=== PATIENT | female | born 1955 | race Caucasian/White ===

== ENCOUNTER 2016-11-14 16:17 | Inpatient (IN) | payer OTHER ==
[~2016-11-14] VITALS: Ht 157.5 cm; Wt 78.6 kg
--- NOTE | 2016-11-14 16:35 | NUR ---
PATIENT SENT TO LOBBY TO WAIT FOR AVAILABLE BED. 0 S/S DISTRESS AND STABLE VITALS
--- NOTE | 2016-11-14 17:33 | NUR ---
CHAPPARONED DR CARCAMO IN RECTAL EXAM; PT HAS EXTERNAL HEMMORHOIDS; NO BLEEDING NOTED.
--- NOTE | 2016-11-14 17:41 | NUR ---
PT PRESENTS TO THE ED WITH THE COMPLAINT OF RECTAL BLEEDING X 2 MONTHS.
--- NOTE | 2016-11-14 17:46 | NUR ---
PT BEING TAKEN TO CT SCAN VIA GURNEY AT THIS TIME
[2016-11-14 17:56] LABS: BASOPHIL % 0.5 % (0-2); PLATELET COUNT 237 x10^3mcL (130-400); RED CELL DISTRIBUTION WIDTH 14.7 % (11.5-14.5)
[2016-11-14 18:05] LABS: CALCIUM 8.8 mg/dL (8.5-10.1); CHLORIDE SERUM 106 mmol/L (98-107); CREATININE SERUM 0.7 mg/dL (0.6-1.0); GFR1 > 60 mL/min; GLUCOSE SERUM 90 mg/dL (74-106); POTASSIUM SERUM 3.8 mmol/L (3.5-5.1); SODIUM SERUM 139 mmol/L (136-145)
[2016-11-14 18:10] LABS: ALBUMIN 3.6 g/dL (3.4-5.0); ALKALINE PHOSPHATASE 90 U/L (46-116); ALT/SGPT 43 U/L (14-59); AST/SGOT 28 U/L (15-37); BILIRUBIN TOTAL 0.26 mg/dL (0.20-1.00); TOTAL PROTEIN, SERUM 7.7 g/dL (6.4-8.2)
--- NOTE | 2016-11-14 19:14 | NUR ---
RECEIVED REPORT FROM FLACO MOJICA.
--- NOTE | 2016-11-14 19:42 | NUR ---
BILAT NARES SWABBED FOR MRSA SCREENING.
[2016-11-14] MEDS ORDERED: TRAMADOL HCL50 MG PO (19:44)
[2016-11-14] MEDS ORDERED: PANTOPRAZOLE SO40 M1 PO (19:44)
[2016-11-14] MEDS ORDERED: DICLOFENAC SOD50 M1 PO (19:45)
[2016-11-14] MEDS ORDERED: GOOD SENSE OMEP20 MG PO (19:46)
[2016-11-14] MEDS ORDERED: CARAFATE1 GM PO (19:46)
[2016-11-14] MEDS ORDERED: 8 HOUR PAIN RE650 M1 PO (19:47)
--- NOTE | 2016-11-14 19:47 | NUR ---
MED REC COMPLETED.
--- NOTE | 2016-11-14 19:58 | NUR ---
REPORT TO [facility].
[2016-11-14 21:08] VITALS: BP 157/61
--- NOTE | 2016-11-14 21:15 | NUR ---
REC'D PT, AOX4, SPEECH CLEAR. DENIES ABD PAIN. NOT ON TELE. DENIES CHEST PAIN. ON RA, NO SOB NOTED. ORIENTED PT TO ROOM AND SURROUNDINGS. CALL LIGHT WITHIN REACH, PROVIDED REPORT TO ARLETTE SAM FOR CONTINUITY OF CARE.
--- NOTE | 2016-11-14 21:30 | NUR ---
RECEIVED PT FROM MAY ADMITTING RN. PT IS ALERT AND ORIENTED X4. NO COMPLAINTS OF PAIN NOTED. RESPIRATIONS EVEN AND UNLABORED. NO DISTRESS NOTED. PT C/O RECTAL BLEEDING. PT IS [place] SPEAKING VERY LITTLE [place] AND ABLE TO MAKE NEEDS KNOWN. IV INFUSING WELL WITH NO INFILTRATION NOTED. INSTRUCTED PT TO USE CALL LIGHT IF NEEDS ASSISTANCE WITH ANYTHING. CALL LIGHT IN REACH. WILL MONITOR. PAGED DR CASTRO FOR FLOOR ORDERS. AWAITING PHONE CALL BACK AT THIS TIME.
--- NOTE | 2016-11-15 00:40 | NUR ---
PT SLEEPING AT THIS TIME WITH NO DISTRESS NOTED. RESPIRATIONS EVEN AND UNLABORED. CALL LIGHT IN REACH. WILL MONITOR.
--- NOTE | 2016-11-15 03:30 | NUR ---
NO CHANGES NOTED AT THIS TIME. NO COMPLAINTS OF PAIN AND NO DISTRESS NOTED. RESPIRATIONS EVEN AND UNLABORED. CALL LIGHT IN REACH. WILL MONITOR.
--- NOTE | 2016-11-15 06:07 | NUR ---
PT CONTINUES TO REST AT THIS TIME, NO DISTRESS NOTED. IV INFUSING WELL AT TKO WITH NO INFILTRATION NOTED. NO C/O PAIN. PT STABLE AT THIS TIME, WILL ENDORSE TO THE A.M SHIFT NURSE.
[2016-11-15 06:11] VITALS: BP 149/68
[2016-11-15 06:23] LABS: BASOPHIL % 0.6 % (0-2); PLATELET COUNT 230 x10^3mcL (130-400)
[2016-11-15 06:26] LABS: RED CELL DISTRIBUTION WIDTH 15.2 % (11.5-14.5)
[2016-11-15 06:43] LABS: CALCIUM 8.3 mg/dL (8.5-10.1); CARBON DIOXIDE 28.2 mmol/L (21-32); CHLORIDE SERUM 108 mmol/L (98-107); CREATININE SERUM 0.7 mg/dL (0.6-1.0); GFR1 > 60 mL/min; GLUCOSE SERUM 81 mg/dL (74-106); POTASSIUM SERUM 3.5 mmol/L (3.5-5.1); SODIUM SERUM 141 mmol/L (136-145)
--- NOTE | 2016-11-15 07:15 | NUR ---
AAO X4.[place] ONLY.DENIES ANY PAIN/DISCOMFORT.REGINALDONGS CLEAR.PT NON-TELE.IVF GOING TO TKO.CALL LIGHT WITHIN REACH.INSTRUCTED TO CALL FOR ANY PAIN/DISCOMFORT.WILL CONTINUE TO MONITOR PT.
[2016-11-15 10:29] VITALS: BP 118/70
--- NOTE | 2016-11-15 11:30 | NUR ---
CAME TO SEE PT.INFORMED HIM OF THE PLAN OF CARE.CONSENT SIGNED FOR EGD AND COLONOSCOPY.PRE-OP CHECKLIST STARTED.BOWEL PREP STARTED.
[2016-11-15 12:15] VITALS: BP 140/61
[2016-11-15 16:35] VITALS: BP 156/59
[2016-11-15 17:12] LABS: UA SPECIFIC GRAVITY 1.025 (1.005-1.035); microscopic required? YES; urine erythrocyte 1+ (NEGATIVE)
--- NOTE | 2016-11-15 18:19 | NUR ---
PT CLAIMS HAD 6+ BM'S TODAY.CLAIMS COLOR IS YELLOW AND SEMI LIQUID STOOL.NO SIGNIFICANT CHANGE NOTED.WILL ENDORSE TO NEXT SHIFT.
--- NOTE | 2016-11-15 19:27 | NUR ---
AWAKE AND VERBALLY RESPONSIVE. ABLE TO MAKE NEEDS KNOWN. SITTING AT THE EDGE OF THE BED DURING SHIFT REPORT. SKIN WARM AND DRY TO TOUCH. FOR EGD/COLONOSCPOPY IN AM, BOWEL PREP AT BEDSIDE, INSTRUCTED TO TAKE AT LEAST [id number], VERBALIZED UNDERSTANDING.
[2016-11-15 20:44] VITALS: BP 134/69
--- NOTE | 2016-11-16 00:10 | NUR ---
BOWEL PREP CONSUMED AND WELL TOLERATED. AMBULATED TO BATHROOM FOR BOWEL ELIMIANTION, WITH LIQUID STOOLS . KEPT CLEAN AND DRY. WILL CONTINUE TO MONITOR.
[2016-11-16 05:29] VITALS: BP 126/67
--- NOTE | 2016-11-16 05:40 | NUR ---
AMBULATED TO BATHROOM FOR PERSONAL NEEDS. GOOD PERICARE RENDERED. KEPT CLEAN AND DRY. REMAINS NPO AFTER MIDNIGHT EXCEPT MEDICATIONS FOR EGD/COLONOSCOPY TODAY. IV ACCESS INTACT AND PATENT. ALL NEEDS ATTENDED.
--- NOTE | 2016-11-16 06:30 | NUR ---
VITAL SIGNS STABLE. REMAINS NPO FOR EGD/COLONOSCOPY TODAY AT AROUND 0900AM . REPORT GIVEN TO ABDOUL (OR STAFF)/
--- NOTE | 2016-11-16 07:44 | NUR ---
RECEIVED SLEEPING BUT AROUSABLE. NO RESP. DISTRESS NOTED. NO C/O PAIN OR DISCOMFORT. IVF INFUSING TO KVO AND SITE CLEAR. PT IS FOR COLONOSCOPY THIS AM PER REPORT. CONSENT SIGNED. CALL LIGHT WITHIN REACH. WILL CONTINUE W/PLAN OF CARE.
--- NOTE | 2016-11-16 09:51 | NUR ---
PT LEFT TO GI LAB IN NO DISTRESS, ALERT AND ORIENTED.
--- NOTE | 2016-11-16 11:03 | NUR ---
PT RETURNED FROM GI LAB IN NO DISTREES. AWAKE ALERT AND ORIENTED. VS WNL. NO C/O PAIN OR DISCOMFORT AT THIS TIME.
[2016-11-16 11:19] VITALS: BP 147/61
[2016-11-16 15:35] VITALS: BP 147/61
--- NOTE | 2016-11-16 16:11 | NUR ---
PT WILL BE DC'D HOME THIS PM. DC INSTRUCTIONS AND RX GIVEN. HL REMOVED AND SITE CLEAR. PT IS GETTING READY.
--- NOTE | 2016-11-16 16:41 | NUR ---
PT DC'D HOME IN NO DISTRESS, AWAKE AND ALERT . NO CHANGES IN VS. NO C/O PAIN OR DISCOMFORT AT THIS TIME. PERSONAL BELONGINGS TAKEN HOME.
== END 2016-11-16 16:37 | disposition home or self-care (01) | DRG 245 ==
LOC: ED 16:17 → MU 19:11
PROVIDERS: Emergency Medicine; Internal Medicine Gastroenterology; Internal Medicine Pulmonary Disease; ADMIT Internal Medicine Pulmonary Disease
PROC: 0DBK8ZX Excision of Ascending Colon, Via Natural or Artificial Opening Endoscopic, Diagnostic (ICD-10-PCS; 2016-11-16)
PROC: 0DB68ZX Excision of Stomach, Via Natural or Artificial Opening Endoscopic, Diagnostic (ICD-10-PCS; principal; 2016-11-16 08:30)
PROC: 0DBH8ZX Excision of Cecum, Via Natural or Artificial Opening Endoscopic, Diagnostic (ICD-10-PCS; 2016-11-16 08:30)
PROC: 0DBN8ZX Excision of Sigmoid Colon, Via Natural or Artificial Opening Endoscopic, Diagnostic (ICD-10-PCS; 2016-11-16 08:30)
DX: K51.90 Ulcerative colitis, unspecified, without complications (principal); K21.0 Gastro-esophageal reflux disease with esophagitis; K44.9 Diaphragmatic hernia without obstruction or gangrene; Z90.49 Acquired absence of other specified parts of digestive tract; Z90.710 Acquired absence of both cervix and uterus
CPT/HCPCS: 43235; 45378; J0295; J1200; J1610; J1720; J1956; J2250; J2310; J3010; J3490; J7030; Q0092

== ENCOUNTER 2018-01-21 11:27 | Emergency (ER) | payer OTHER ==
[~2018-01-21] VITALS: Ht 154.9 cm; Wt 78.9 kg
[~2018-01-21 11:27] MED LIST: 8 HOUR PAIN RE650 M1 PO; CARAFATE1 GM PO; DICLOFENAC SOD50 M1 PO; GOOD SENSE OMEP20 MG PO; PANTOPRAZOLE SO40 M1 PO; TRAMADOL HCL50 MG PO
[2018-01-21 11:35] VITALS: Ht 154.9 cm; Wt 78.9 kg
[2018-01-21 14:02] VITALS: BP 131/100
== END 2018-01-21 14:02 | disposition home or self-care (01) ==
LOC: ED 11:27
DX: M12.88 Other specific arthropathies, not elsewhere classified, other specified site (principal); E78.00 Pure hypercholesterolemia, unspecified; R03.0 Elevated blood-pressure reading, without diagnosis of hypertension
CPT/HCPCS: 72072; J1885

== ENCOUNTER 2018-08-06 19:34 | Emergency (ER) | payer OTHER ==
[~2018-08-06] VITALS: Ht 157.5 cm; Wt 79.8 kg
[2018-08-06 19:39] VITALS: Ht 157.5 cm; Wt 79.8 kg
[2018-08-06 23:07] VITALS: BP 144/64
== END 2018-08-06 23:07 | disposition home or self-care (01) ==
LOC: ED 19:34
DX: M54.5 Low back pain (principal); R31.9 Hematuria, unspecified; K21.9 Gastro-esophageal reflux disease without esophagitis; E78.00 Pure hypercholesterolemia, unspecified
CPT/HCPCS: J1885

== ENCOUNTER 2019-10-17 12:33 | Emergency (ER) | payer OTHER ==
[~2019-10-17] VITALS: Ht 157.5 cm; Wt 76.2 kg
[2019-10-17 13:40] VITALS: Ht 157.5 cm; Wt 76.2 kg
[2019-10-17 14:53] LABS: BASOPHIL % 0.6 % (0-2); PLATELET COUNT 236 x10^3mcL (130-400)
[2019-10-17 14:56] LABS: RED CELL DISTRIBUTION WIDTH 15.2 % (11.5-14.5)
[2019-10-17 15:10] LABS: ALBUMIN 3.4 g/dL (3.4-5.0); ALKALINE PHOSPHATASE 103 U/L (46-116); ALT/SGPT 30 U/L (14-59); AST/SGOT 16 U/L (15-37); BILIRUBIN TOTAL 0.2 mg/dL (0.20-1.00); CHLORIDE SERUM 107 mmol/L (98-107); GFR1 59 mL/min; GLUCOSE SERUM 82 mg/dL (74-106); LIPASE 108 IU/L (73-393); POTASSIUM SERUM 4.2 mmol/L (3.5-5.1); SODIUM SERUM 143 mmol/L (136-145); TOTAL PROTEIN, SERUM 7.5 g/dL (6.4-8.2)
[2019-10-17 15:16] LABS: CALCIUM 8.8 mg/dL (8.5-10.1)
[2019-10-17 16:28] VITALS: BP 129/52
== END 2019-10-17 16:28 | disposition home or self-care (01) ==
LOC: ED 12:33
PROVIDERS: Emergency Medicine
DX: K52.9 Noninfective gastroenteritis and colitis, unspecified (principal); K62.5 Hemorrhage of anus and rectum; E78.00 Pure hypercholesterolemia, unspecified; Z98.890 Other specified postprocedural states
CPT/HCPCS: C9113; G0480; J2405; J2930; J7030; Q0092

== ENCOUNTER 2019-12-18 17:20 | Emergency (ER) | payer OTHER ==
[~2019-12-18] VITALS: Ht 157.5 cm; Wt 77.6 kg
[2019-12-18 17:25] VITALS: Ht 157.5 cm; Wt 77.6 kg
[2019-12-18 18:19] LABS: BASOPHIL % 0.3 % (0-2); PLATELET COUNT 241 x10^3mcL (130-400); RED CELL DISTRIBUTION WIDTH 15.8 % (11.5-14.5)
[2019-12-18 18:30] LABS: CALCIUM 9.4 mg/dL (8.5-10.1); CARBON DIOXIDE 30.4 mmol/L (21-32)
[2019-12-18 18:37] LABS: ALBUMIN 3.7 g/dL (3.4-5.0); BILIRUBIN TOTAL 0.27 mg/dL (0.20-1.00); CHOLESTEROL/HDL RATIO 5.1; TOTAL PROTEIN, SERUM 7.3 g/dL (6.4-8.2)
[2019-12-18 18:45] LABS: FREE T4 1.25 ng/dL (0.76-1.46); FREE THYROXINE INDEX 3.3 ug/dL (1.4-4.5)
[2019-12-18 18:52] LABS: T3 TOTAL 0.97 ng/mL
[2019-12-18 18:58] LABS: UA SPECIFIC GRAVITY <=1.005 (1.005-1.035); microscopic required? YES; urine erythrocyte TRACE (NEGATIVE)
[2019-12-19 00:35] VITALS: BP 156/52
== END 2019-12-19 00:35 | disposition home or self-care (01) ==
LOC: ED 17:20
PROVIDERS: Specialist
DX: K52.9 Noninfective gastroenteritis and colitis, unspecified (principal); E78.00 Pure hypercholesterolemia, unspecified
CPT/HCPCS: 83880; 84439; J1885; J1956; J3490; J7030; Q0092

== ENCOUNTER 2020-06-24 11:38 | Emergency (ER) | payer OTHER, MEDICAID ==
[~2020-06-24] VITALS: Ht 157.5 cm; Wt 78.2 kg
[2020-06-24 11:49] VITALS: Ht 157.5 cm; Wt 78.2 kg
[2020-06-24 13:04] LABS: BASOPHIL % 0.7 % (0-2); PLATELET COUNT 236 x10^3mcL (130-400)
[2020-06-24 13:06] LABS: CALCIUM 9.4 mg/dL (8.5-10.1); CARBON DIOXIDE 29.6 mmol/L (21-32); CREATININE SERUM 1.1 mg/dL (0.6-1.0); POTASSIUM SERUM 4.1 mmol/L (3.5-5.1); RED CELL DISTRIBUTION WIDTH 14.6 % (11.5-14.5)
[2020-06-24 13:11] LABS: ALBUMIN 3.8 g/dL (3.4-5.0); BILIRUBIN TOTAL 0.3 mg/dL (0.20-1.00); TOTAL PROTEIN, SERUM 7.4 g/dL (6.4-8.2)
[2020-06-24 14:20] VITALS: BP 163/63
== END 2020-06-24 14:20 | disposition home or self-care (01) ==
LOC: ED 11:38
PROVIDERS: Emergency Medicine
DX: K62.5 Hemorrhage of anus and rectum (principal); I10 Essential (primary) hypertension; E78.00 Pure hypercholesterolemia, unspecified; Z87.19 Personal history of other diseases of the digestive system; Z98.890 Other specified postprocedural states

== ENCOUNTER 2020-07-08 06:37 | Emergency (ER) | payer OTHER, MEDICAID ==
[~2020-07-08] VITALS: Ht 162.6 cm; Wt 77.1 kg
[2020-07-08 06:53] VITALS: Ht 162.6 cm; Wt 77.1 kg
[2020-07-08 08:35] LABS: BASOPHIL % 1.8 % (0-2); PLATELET COUNT 243 x10^3mcL (130-400); RED CELL DISTRIBUTION WIDTH 13.8 % (11.5-14.5)
[2020-07-08 08:51] LABS: CALCIUM 9.4 mg/dL (8.5-10.1); CHLORIDE SERUM 106 mmol/L (98-107); CREATININE SERUM 0.8 mg/dL (0.6-1.0); GFR1 > 60 mL/min; GLUCOSE SERUM 96 mg/dL (74-106); POTASSIUM SERUM 3.8 mmol/L (3.5-5.1); SODIUM SERUM 139 mmol/L (136-145)
[2020-07-08 09:00] LABS: ALBUMIN 3.4 g/dL (3.4-5.0); ALKALINE PHOSPHATASE 88 U/L (46-116); ALT/SGPT 33 U/L (14-59); AMYLASE 69 U/L (25-115); AST/SGOT 31 U/L (15-37); BILIRUBIN TOTAL 0.4 mg/dL (0.20-1.00); LIPASE 102 IU/L (73-393); TOTAL PROTEIN, SERUM 7.2 g/dL (6.4-8.2)
[2020-07-08 11:05] VITALS: BP 137/47
== END 2020-07-08 11:05 | disposition home or self-care (01) ==
LOC: ED 06:37
PROVIDERS: Emergency Medicine
DX: K51.90 Ulcerative colitis, unspecified, without complications (principal); I10 Essential (primary) hypertension; E78.00 Pure hypercholesterolemia, unspecified
CPT/HCPCS: J1720; J7030